=== PATIENT | female | born 1970 | race Caucasian/White ===

== ENCOUNTER → 2023-12-13 06:35 | Day surgery (SDC) | payer OTHER, SELFPAY | LOC: GI 06:35 | PROVIDERS: ATTENDING PHYSICIAN Internal Medicine Gastroenterology | DX: K29.70 Gastritis, unspecified, without bleeding (principal); K22.89 Other specified disease of esophagus; K31.7 Polyp of stomach and duodenum; K31.89 Other diseases of stomach and duodenum; R13.10 Dysphagia, unspecified; Z87.19 Personal history of other diseases of the digestive system | CPT/HCPCS: 43239; 88305; 88342 ==

== ENCOUNTER → 2024-02-13 11:49 | Outpatient (REF) | payer OTHER, SELFPAY | LOC: RAD 11:49 | PROVIDERS: ATTENDING PHYSICIAN Internal Medicine Gastroenterology | DX: R13.10 Dysphagia, unspecified (principal) | CPT/HCPCS: 71260; 74160; Q9967 ==

== ENCOUNTER 2025-02-19 10:57 | Emergency (ER) | payer BC, SELFPAY ==
[2025-02-19 11:04] VITALS: BP 125/69
--- NOTE | 2025-02-19 11:08 | ED.GENMED ---
History of Present Illness
General
Chief Complaint: Medication Reaction
Source: patient
Exam Limitations: none
Time Seen by Provider: 02/19/25 11:03
Nursing documentation reviewed up to this point in time: agreed with
History of Present Illness
History of Present Illness:
55-year-old female presents Emergency Department due to possible medication reaction to the [place] she got an infusion of 50 mL at GI clinic for her ulcerative colitis. Began feeling chest tightness, lightheadedness. She was given Benadryl 25 mg
and Solu-Medrol 20 mg. Then transported to the emergency department.
Past History
Past History
ED Past Medical History: Other (Colitis)
Social History
Tobacco: Smoker
Alcohol: None
Drug: None
Review of Systems
Review of Systems
Allergies reviewed?: Yes
All Other Systems: Not applicable
Constitutional: Reports no symptoms
EENT: Reports no symptoms
Respiratory: Reports trouble breathing
Cardiac: Reports chest pain
ABD/GI: Reports no symptoms
: Reports no symptoms
Musculoskeletal: Reports no symptoms
Skin: Reports no symptoms
Neurological: Reports weakness
Endocrine: Reports no symptoms
Hematologic/Lymphatic: Reports no symptoms
Psychiatric: Reports no symptoms
Phy Exam
Physical Exam
Physical Exam:
Physical Exam
General: Afebrile, appears uncomfortable
Neck: supple. no meningeal signs. normal posterior pharynx
Heart: s1/s2 regular rate and rhythm, no murmur. equal radial
pulses.
HEENT: Pupils equal round reactive to light, EOMI
Lungs: no acute respiratory distress. clear bilaterally
Abdomen: normal bowel sounds. not tender. no CVAT
Neuro: alert and oriented. no focal neurological deficits cranial nerves II through XII intact
Skin: no rash
Psychiatric: well kept. interactive and cooperative
Extremities: no edema. no calf tenderness. negative homans. good distal pulses
Course
Orders/Labs/Results
Orders:
Orders
02/19/25 11:03
IV Insert/Care/Rem.- Treatment PRN
Pulse Ox/cont/shift [RESP] Stat
Quantity: 1
02/19/25 11:04
Cardiac Monitoring- Treatment ONCE
02/19/25 11:05
Electrocardiogram (*1) Stat
Reason for Study: Other
Other Reason for Exam: chest pain
EKG- Treatment ONCE
CR Chest - 2 Views Urgent
Comment:
Reason For Exam: short of breath
02/19/25 11:14
Complete Blood Count/With Diff Urgent
Comprehensive Metabolic Panel Urgent
Lipase Urgent
Magnesium Urgent
Troponin I Urgent
Abnormal Lab Results
02/19/25
11:14
RBC 4.10 L 10^6/uL
(4.20-5.40)
Hct 36.9 L %
(37.0-47.0)
MPV 11.8 H fL
(7.4-10.4)
Chloride 110 H mmol/L
(98-107)
Lipase 348 H U/L
(23-300)
02/19/25 11:14
02/19/25 11:14
Vital Signs
Initial and Last Documented VS:
Initial Vital Signs
Temp Pulse Resp BP Pulse Ox
98.2 F 57 24 125/69 100
02/19/25 11:04 02/19/25 11:04 02/19/25 11:04 02/19/25 11:04 02/19/25 11:04
Last Documented Vital Signs
Temp Pulse Resp BP Pulse Ox
98.2 F 60 14 95/59 96
02/19/25 11:04 02/19/25 14:30 02/19/25 14:30 02/19/25 14:00 02/19/25 14:30
MDM/Problems Addressed
Differential Diagnosis Includes:
Allergic reaction, adverse reaction
MDM/Problems Addressed:
55-year-old female with allergic reaction to infliximab type medication. Stable observation. Patient will need premedication prior to receiving this in the future.
Chronic conditions affecting care: Other (Colitis)
*Radiology
Radiology exam reviewed: radiology read reviewed (Chest x-ray no acute findings)
*Pulse Oximetry
Patient hypoxic: no
*EKG
Interpreted by ED Provider?: Yes
EKG Intrepretation Date: 02/19/25
EKG Intrepretation Time: 11:02
Interpretation: normal
Comparison EKG: no comparison EKG present
Heart Rate: 61
Rate: normal
Rhythm: sinus
[place]: normal axis
Interval: normal interval
QRS Pattern: normal QRS
Ischemia: no ischemia
*Counsel Interpretation
Rate: normal
Interpretation: normal
Heart Rate: 60
Rhythm: sinus
*Critical Care Note
Total Time (30-74mins, 75-104mins- exclusive of procedures): Not Applicable
Data Reviewed
Review of Other/Old Records Reveals: Labs
Patient Management
Social determinants of health affecting care: Living situation and Strong social support
Escalation/DeEscalation of care consider admission/obs:
Admit not indicated
ED Attending Note
-
Portions of this chart may have been created with voice recognition software.� Occasional wrong word or��sound alike� substitutions may have occurred due to the inherent limitations of voice recognition software.
Discharge Plan
Departure
Patient Disposition: Home (Routine Discharge)
Date of Disposition: 02/19/25
Time of Disposition: 15:10
Patient with high blood pressure during this ER visit?: No
Condition: Good
Discharge Problem:
Allergic reaction caused by a drug
Instructions: Adverse Drug Reactions, Adult ED
Referrals:
Edi Medley, DO [Family Provider] - Call in 1-3 days for appt
Interventions
Interventions:
*Risk Screen - Suicide Last Done: 02/19/25 11:04
*General Assessment Last Done: 02/19/25 11:04
*Neglect/Abuse Screening Last Done: 02/19/25 11:04
*ED- Fall Risk Assessment Last Done: 02/19/25 11:27
ED-Skin Assessment Last Done: 02/19/25 11:27
ED- Pulmonary Assessment Last Done: 02/19/25 11:27
ED-EENT Assessment Last Done: 02/19/25 11:27
Discharge Date and Time
Print Language: SAMI
[2025-02-19 11:26] LABS: % Eosinophils 1.1 % (0-6); % Immature Granulocytes 0.2 % (0-0.5); % Monocytes 5.2 % (1.7-9.3); % Neutrophils 52.5 % (42.2-75.2); Absolute Basophils 0.1 10^3/uL (0-0.2); Absolute Eosinophils 0.1 10^3/uL (0-0.7); Absolute Lymphocytes 3.2 10^3/uL (1.2-3.4); Absolute Monocytes 0.4 10^3/uL (0.1-0.6); Absolute Neutrophils 4.2 10^3/uL (1.4-6.5); Hematocrit 36.9 % (37.0-47.0); Hemoglobin 12.6 g/dL (12.0-16.0); Mean Corp Hgb Conc. 34.1 g/dL (33.0-37.0); Mean Corpuscular Hgb 30.7 pg (27.0-31.0); Mean Platelet Volume 11.8 fL (7.4-10.4); Nucleated Red Blood Cells % 0 %; Platelet Count 268 10^3/uL (130-400); Red Cell Dist. Width 13.3 % (11.5-14.5); White Blood Cell Count 8.1 10^3/uL (4.8-10.8)
[2025-02-19 11:53] LABS: ALT (SGPT) 17 U/L (0-35); AST (SGOT) 24 U/L (14-36); Albumin 4.3 g/dl (3.5-5.0); Alkaline Phosphatase 43 U/L (38-126); Blood Urea Nitrogen 14 mg/dl (7-17); Carbon Dioxide 23 mmol/L (22-30); Chloride 110 mmol/L (98-107); Glucose 88 mg/dl (70-99); Lipase 348 U/L (23-300); Potassium 4.3 mmol/L (3.5-5.1); Sodium 143 mmol/L (135-145); Total Bilirubin 0.6 mg/dl (0.2-1.3); Total Protein 7.5 g/dl (6.3-8.2); eGFR > 60.00
[2025-02-19 12:00] VITALS: BP 94/63
[2025-02-19 12:03] LABS: Troponin I < 0.012 ng/ml
[2025-02-19 13:00] VITALS: BP 90/73
[2025-02-19 14:00] VITALS: BP 95/59
[2025-02-19 15:04] VITALS: BP 98/59
== END 2025-02-19 15:15 | disposition home or self-care (01) ==
LOC: EMR 10:57
PROVIDERS: EMERGENCY PHYSICIAN Emergency Medicine; FAMILY PHYSICIAN Family Medicine
DX: R07.89 Other chest pain (principal); R42 Dizziness and giddiness; T50.995A Adverse effect of other drugs, medicaments and biological substances, initial encounter; F17.200 Nicotine dependence, unspecified, uncomplicated
CPT/HCPCS: 99285; 71046; 80053; 83690; 83735; 84484; 85025; 93005

== ENCOUNTER 2025-08-18 06:18 | Day surgery (SDC) | payer OTHER, SELFPAY | END 2025-08-18 10:23 | disposition home or self-care (01) | LOC: GI 06:18 | PROVIDERS: ATTENDING PHYSICIAN Internal Medicine | DX: R13.10 Dysphagia, unspecified (principal); K22.2 Esophageal obstruction; K31.89 Other diseases of stomach and duodenum | CPT/HCPCS: 43249; 43239; 88305 ==

== ENCOUNTER 2025-10-21 06:07 | Day surgery (SDC) | payer OTHER, SELFPAY ==
[2025-10-21 08:05] VITALS: BMI 20.7
[2025-10-21 08:10] VITALS: BP 100/69
[2025-10-21 08:22] VITALS: BMI 20.7
[2025-10-21 09:46] VITALS: BP 96/52
[2025-10-21 10:00] VITALS: BP 97/64
[2025-10-21 10:15] VITALS: BP 113/70
== END 2025-10-21 10:51 | disposition home or self-care (01) ==
LOC: SDS 06:07
PROVIDERS: ATTENDING PHYSICIAN Internal Medicine Gastroenterology
DX: K22.89 Other specified disease of esophagus (principal)
CPT/HCPCS: 43259